=== PATIENT | male | born 1990 | race Caucasian/White ===

== ENCOUNTER 2020-06-19 11:35 | Emergency (ER) | payer BC, OTHER ==
[2020-06-19] MEDS ORDERED: Ibuprofen 800 MG Tab PO ONE (11:48)
--- NOTE | 2020-06-19 11:51 | EDM.PDOC ---
ED HPI GENERAL MEDICAL PROBLEM - General Chief Complaint: Lower Extremity Injury/Pain Stated Complaint: LEFT FOOT INJURY Time Seen by Provider: 06/19/20 11:46 Source of Information: Reports: Patient History Limitations: Reports: No Limitations - History of Present Illness INITIAL COMMENTS - FREE TEXT/NARRATIVE: 29-year-old male attends the ED for evaluation of injury to his left ankle. He reports that about [place] ankle. It did immediately what became very swollen on the lateral dorsal aspect of his ankle and he cannot weight-bear on this foot. Denies any other injuries. Onset: Today, Sudden Onset Date: 06/19/20 Onset Time: 10:30 Duration: Minutes:, Constant Location: Reports: Lower Extremity, Left Quality: Reports: Ache (Acute inversion injury to the left lateral ankle.), Throbbing Severity: Moderate Improves with: Reports: Rest Worsens with: Reports: Other Context: Reports: Trauma. 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[employer]) Review of Systems - Review of Systems Review Of Systems: See Below Eyes: Reports: Glasses Ears: Reports: No Symptoms Nose: Reports: No Symptoms Mouth/Throat: Reports: No Symptoms Respiratory: Reports: No Symptoms Cardiovascular: Reports: No Symptoms GI/Abdominal: Reports: No Symptoms Genitourinary: Reports: No Symptoms Musculoskeletal: Reports: Other (Patient does have hyperelasticity of his joints.) Skin: Reports: No Symptoms Neurological: Reports: No Symptoms Psychiatric: Reports: No Symptoms ED EXAM, GENERAL - Physical Exam Exam: See Below Exam Limited By: No Limitations General Appearance: Alert, WD/WN, No Apparent Distress, Other (Vital signs are normal.) Extremities: Other (Examination was limited to the left lower extremity. He has no pain on firm compression of the proximal left fibula. No pain in the ankle and firm compression of the midshaft of the tib-fib. He has marked swelling and early ecchymosis developing over the dorsal lateral left ankle. He has no pain on palpation of the medial ankle ligaments. Minimal pain on firm compression over the fifth metatarsal head lateral foot.) Neurological: Alert, Oriented, CN II-XII Intact, Normal Cognition Psychiatric: Normal Affect, Normal Mood Skin Exam: Warm, Dry, Intact, Normal Color, No Rash Course - Vital Signs Last Recorded V/S: Last Vital Signs Temp 36.6 C 06/19/20 11:51 Pulse 79 06/19/20 11:51 Resp 20 06/19/20 11:51 BP 140/92 H 06/19/20 11:51 Pulse Ox 100 06/19/20 11:51 - Orders/Labs/Meds Orders: Active Orders 24 hr Category Date Time Status Ankle Min 3V Lt [CR] Stat Exams 06/19/20 11:46 Taken Meds: Medications Discontinued Medications Generic Name Dose Route Start Last Admin Trade Name Freq PRN Reason Stop Dose Admin Ibuprofen 800 mg 06/19/20 11:48 06/19/20 12:06 Motrin PO 06/19/20 11:49 800 mg ONETIME ONE Administration - Radiology Interpretation Free Text/Narrative:: 29-year-old male attends the ED with an acute injury to his left ankle when he jumped from a combine and landed wrong on his left foot. He suffered a severe inversion injury to the left ankle. He was wearing a work boot made of leather. Examination reveals marked ecchymosis swelling of the lateral ligaments and dorsal ligaments of the left foot. Medial ligaments are intact. Of note the patient has hyperelastic joints and hypermobility making him prone to ligamentous injuries. Plan three-view x-ray left ankle to be done - Re-Assessments/Exams Free Text/Narrative Re-Assessment/Exam: 06/19/20 12:15 there is a small avulsion fracture off the lateral cuboid bone where the ligament inserts. Plan Efrain wrap on during the day and off at night for the next 2 to 3 weeks. Ice pack to the area 1/2-hour out of every 4 hours elevate as much as possible. Motrin 600 mg every 6 hours to relieve pain and inflammation. He will be nonweightbearing crutch walking until able to weight- bear without pain which will likely be 5 or 6 days. Departure - Departure Time of Disposition: 12:15 Disposition: Home, Self-Care 01 Condition: Fair Clinical Impression: Avulsion fracture of ankle Severe sprain of left ankle Qualifiers: Encounter type: initial encounter Qualified Code(s): S93.402A - Sprain of unspecified ligament of left ankle, initial encounter - Discharge Information *PRESCRIPTION DRUG MONITORING PROGRAM REVIEWED*: Not Applicable *COPY OF PRESCRIPTION DRUG MONITORING REPORT IN PATIENT SHRADDHA: Not Applicable Instructions: Ankle Sprain, Phase I Rehab-SportsMed, Elastic Bandage and RICE Therapy, Crutch Use, Adult, [id number] Referrals: PCP,None [Primary Care Provider] - Forms: ED Department Discharge Additional Instructions: Evaluation in the emergency room today in regards to an acute injury to your left lateral ankle that occurred when he jumped down from the combine and inadvertently inverted your left ankle. You have hypermobile joints and therefore the foot rolled significantly causing a severe sprain of the ligaments on the lateral aspect of your ankle. X-rays of the left ankle show no fracture in the distal fibula or tibia bone which are the main lower bones of your leg. No fractures identified within the talus or the calcaneal bones in your foot either. There is a small sliver fracture off the lateral cuboid bone where of the 3 ligaments on the lateral aspect of the ankle inserts. This is of no consequence and he will heal with time. Treatment is rest, ice pack to the area 1/2-hour out of every 4 hours for the next 2 to 3 days. Elevate as much as possible. Efrain wrap on during the day and off at night for the next 2 weeks. Nonweightbearing crutch walking until able to weight-bear with hardly any pain in the ankle which will likely be 5 or 6 days. Motrin 600 mg every 6 hours as needed to reduce pain and inflammation. I would expect this injury to be to take 2 to 3 weeks before he you are back to normal in terms of climbing ladders etc. If not better in that length of time you need to be reviewed. Sepsis Event Note (ED) - Focused Exam Vital Signs: Vital Signs Temp Pulse Resp BP Pulse Ox 06/19/20 11:51 36.6 C 79 20 140/92 H 100 - My Orders Last 24 Hours: My Active Orders 06/19/20 11:46 Ankle Min 3V Lt [CR] Stat - Assessment/Plan Last 24 Hours: My Active Orders 06/19/20 11:46 Ankle Min 3V Lt [CR] Stat
--- NOTE | 2020-06-19 13:55 | CR ---
Left ankle: 4 views of the left ankle were obtained. Comparison: No previous ankle study. Well-corticated bony density is noted off the distal midfoot which is well-corticated and believed to be old. No acute fracture, dislocation or other bony abnormality is appreciated. Impression: 1. No acute bony abnormality is identified on the left ankle exam. Diagnostic code #2 This report was dictated in MDT
== END 2020-06-19 12:38 | disposition home or self-care (01) ==
LOC: JD.ED 11:35
DX: S92.212A Displaced fracture of cuboid bone of left foot, initial encounter for closed fracture (principal); Z88.0 Allergy status to penicillin; X50.0XXA Overexertion from strenuous movement or load, initial encounter; Y93.39 Activity, other involving climbing, rappelling and jumping off; Y92.79 Other farm location as the place of occurrence of the external cause
CPT/HCPCS: 73610; 99283; A9270